=== PATIENT | female | born 1965 | race Caucasian/White ===

== ENCOUNTER 2024-09-04 08:29 | Outpatient (REF) | payer OTHER, SELFPAY ==
--- NOTE | ~2024-09-04 | XR_ITS ---
EXAMINATION: XR KNEE, RIGHT CLINICAL INFORMATION: M25.569 - Pain in unspecified knee COMPARISON: None available. TECHNIQUE: Three views of the right knee. FINDINGS: Joint space narrowing involving mostly the medial compartment both knees with associated sclerosis and the articular surface of the medial tibial plateau and medial femoral condyle. There is marginal osteophyte formation and both femoral condyles and both tibial plateaus of both knees. No suprapatellar bursa joint effusion, right knee. No acute cortical disruption or malalignment. No lytic or blastic lesions. Linear sclerosis in a transverse morphology pattern involving distal diaphysis of the femurs and proximal diaphysis of the tibia, both lower extremities. XR/XR knee RT 3V IMPRESSION: Tricompartmental osteoarthrosis involving mostly the medial compartment both knees without acute fracture or dislocation. Electronically signed by: Lloyd Alvarado MD 09/05/2024 08:18 AM EDT
--- OUTSIDE RECORDS SUMMARY | 2024-09-05 08:54 | XMS_ITS | Clinical Summary ---
Author Organization [employer] Address [address] [facility] [address] [place] [address] Care Team Providers Care Tableau Lead Name Role Phone Unavailable Primary Care Provider [...] patient's age to complete this topic Insurance [facility]
== END 2024-09-04 08:30 | disposition home or self-care (01) ==
LOC: HO.HOSX 08:29
PROVIDERS: Visit Provider Physician Assistant
DX: M17.11 Unilateral primary osteoarthritis, right knee (principal); Z87.81 Personal history of (healed) traumatic fracture
CPT/HCPCS: 20610; 73562; 99202; J1010; J2003

== ENCOUNTER 2024-09-04 10:29 | Outpatient (AMB) | payer OTHER, SELFPAY ==
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
[2024-09-04 11:09] VITALS: BMI 40.4
--- OUTSIDE RECORDS SUMMARY | 2024-09-04 11:36 | XMS_ITS | Clinical Summary ---
Author Organization [employer] Address [address] [facility] [address] [place] [address] Care Team Providers Care Paper Inserter Name Role Phone Unavailable Primary Care Provider Unavailabl e Medications No known medications Social History Tobacco Use Types Packs/Day Years Used Date Smoking Tobacco: Unknown Tobacco Cessation:Counseling Given: Not Answered Comments Unknown Sex and Gender Information Value Date Recorded Sex Assigned at Female 04/03/2022 10:26 AM EDT Legal Sex Female 10:26 AM EDT Gender Identity Female 04/03/2022 10:26 AM EDT Sexual Orientation Straight 04/03/2022 10 :26 AM EDT Plan of Treatment Health Maintenance Due Date Last Done Comments CT Colonography 1965 Colonoscopy 1965 Colorectal Cancer Screening 1965 Dental Oral Exam 1965 Dental Prophylaxis 1965 Dental X-Ray: Bitewings 1965 Dental X-Ray: Full Mouth 1965 Depression Screening 1965 FIT DNA/Cologuard 1965 FIT 1965 FOBT 1965 HIV Screening 1965 Lipid Panel 1965 SDOH Screening 1965 Sigmoidoscopy 1965 Alcohol/Substance Use Screening 1977 Hepatitis C Screening 1983 Hepatitis B Vaccines (1 of 3 - 19+ 3-dose series) 1984 Pap Smear 1986 Cervical Cancer Screening 1995 HPV/Cotest 1995 Mammogram 2005 Pneumococcal Vaccine: 50+ Years (1 of 1 - PCV) 2015 Tobacco Screening 07/11/2023 07/11/2022 COVID-19 Vaccine (2 - 2023-2 5 season) 2024 10/04/2020 Influenza Vaccine (#1) 2024 DTaP/Tdap/Td Vaccines (2 - T d or Tdap) 12/02/2029 12/03/2019 RSV Patients and Patients Aged 60 years or older (1 - 1-dose 75+ series) 2040 Zoster Vaccines Completed 01/06/2021, 10/26/2020 HIB Vaccines Aged Out No longer eligi ble based on patient's age to complete this topic HPV Vaccines Aged Out No longer eligi ble based on patient's age to complete this topic Hepatitis A Vaccines Aged Out No long er eligible based on patient's age to complete this topic IPV Vaccines Aged Out No longer eligi ble based on patient's age to complete this topic Meningococcal Vaccine Aged Out No jamal maurizio eligible based on patient's age to complete this topic RSV under 20 months Aged Out No longe r eligible based on patient's age to complete this topic Rotavirus Vaccines Aged Out No longer eligible based on patient's age to complete this topic Insurance [facility]
== END 2024-09-04 12:02 | disposition home or self-care (01) ==
LOC: HO.HOS 10:30
PROVIDERS: PCP Physician Assistant Medical; Visit Provider Physician Assistant
DX: M17.11 Unilateral primary osteoarthritis, right knee (principal)
CPT/HCPCS: 20610; 99204

== ENCOUNTER → 2024-09-04 10:35 | Outpatient (BNV) | payer OTHER, SELFPAY | PROVIDERS: Visit Provider Radiology Diagnostic Radiology | DX: M17.11 Unilateral primary osteoarthritis, right knee (principal) | CPT/HCPCS: 73562 ==

== ENCOUNTER 2024-12-12 11:40 | Outpatient (AMB) | payer OTHER, SELFPAY ==
[2024-12-12 11:48] VITALS: BMI 40.4
--- NOTE | 2024-12-12 11:48 | MHC.OFFVIS ---
Vital Signs 12/12/24 11:48 Height 5 ft 5 in Weight 243 lb BMI 40.4 Intake Visit Reasons: right knee pain (80), last inj 09/04/24 Intake Note: Jessica is a 59 year old female who presents today for a repeat injection for her right knee pain (80), last inj 09/04/24. Patient reports that she did not have any pain for about a month but wore off. Allergies naproxen (NAPROXEN) Allergy (Unknown, Verified 12/12/24 11:50) UNKNOWN HPI HPI right knee pain (80), last inj 09/04/24: Details: Ms. Keyes is a 59-year-old female who presents to the office today for chronic right knee pain due to osteoarthritis. Her last cortisone injection was 09/04/2024. She is looking for repeat cortisone injection while in the office today. [facility] Social History (Updated 09/04/24 @ 11:08 by Nelson Guerra) Alcohol intake: never Patient Tobacco Use Status: Never used Tobacco Current occupational status: disabled Review of Systems Const All systems reviewed & are unremarkable except as noted in HPI and below Physical Exam Vital Signs: BMI result Body Mass Index 40.4 Extrem Other: Right knee: Normal to inspection. No ecchymosis, erythema, or joint effusion. Tenderness to palpation medial joint line. Full knee extension and flexion with crepitus. NVI. Office Procedures AMB Joint Injection/Aspiration Joint Injection/Aspiration Primary Site: right knee Injected: 80 mg of, DepoMedrol, with 8 mL of (2% plain lidocaine) and in the joint Approach Used: anterolateral Procedure: The patient tolerated the procedure well, but had some pain with the injection and there was some relief with the local anesthesia Coding 01565 - Large joint Procedure code (CPT) selection complete Assessment & Plan Assessment & Plan (1) Osteoarthritis of right knee: Code(s): M17.11 - Unilateral primary osteoarthritis, right knee Category: Medical Plan The patient was offered a cortisone injection in the right knee with 80 mg of DepoMedrol. The patient was explained the risks, benefits, and alternatives to receiving this injection. After receiving consent for the injection, the patient had the procedure done while in the office today. The patient tolerated the procedure well with no complications. Follow-up will be PRN, or sooner if needed Coding Level of Care Code Est Pt Level 3 (01388) Diagnoses Osteoarthritis of right knee M17.11 CPT Codes Coding - 24268 Large joint: 05391 - Large joint ([id number])
--- OUTSIDE RECORDS SUMMARY | 2024-12-12 12:10 | XMS_ITS | Clinical Summary ---
Author Organization [employer] Address [address] [facility] 7[address] [place] [address] Care Team Providers Care Textile Science Technician Name Role Phone Unavailable Primary Care Provider [...] Panel 1965 SDOH Screening 1965 Sigmoidoscopy 1965 Disability Screening 1965 Alcohol/Substance Use Screening 1977 Hepatitis C Screening 1983 Hepatitis B Vaccines (1 of 3 - 19+ 3-dose series) 1984 Pap Smear 1986 Cervical Cancer Screening 1995 HPV/Cotest 1995 Mammogram 2005 Pneumococcal Vaccine: 50+ Years (1 of 1 - PCV) 2015 Tobacco Screening 07/11/2023 07/11/2022 COVID-19 Vaccine (2 - 2023-2 5 season) 2024 10/04/2020 Influenza Vaccine (#1) 2025 DTaP/Tdap/Td Vaccines (2 - T d or [...] patient's age to complete this topic Meningococcal B Vaccine Aged Out No l onger eligible based on patient's age to complete this topic Meningococcal Vaccine Aged Out No jamal maurizio eligible based on patient's age to complete this topic RSV under 20 months Aged Out No longe r eligible based on patient's age to complete this topic Rotavirus Vaccines Aged Out No longer eligible based on patient's age to complete this topic Insurance [facility]
== END 2024-12-12 12:01 | disposition home or self-care (01) ==
LOC: HO.HOS 11:40
PROVIDERS: Visit Provider Physician Assistant
DX: M17.11 Unilateral primary osteoarthritis, right knee (principal)
CPT/HCPCS: 20610

== ENCOUNTER → 2024-12-12 11:40 | Outpatient (BNVA) | payer OTHER, SELFPAY | PROVIDERS: Visit Provider Physician Assistant | DX: M17.11 Unilateral primary osteoarthritis, right knee (principal); M25.561 Pain in right knee | CPT/HCPCS: 20610; J1010; J2003 ==

== ENCOUNTER 2025-05-05 08:22 | Outpatient (AMB) | payer OTHER, SELFPAY ==
--- OUTSIDE RECORDS SUMMARY | 2025-05-05 08:25 | XMS_ITS | Clinical Summary ---
Author Organization [facility] Address [address] [address] Phone Care Team Providers Care Auto Body Straightener Name Role Phone Tristen Joyce MD Primary Care Provider + Allergies Active Allergy Reactions Criticality Noted Date Comments Niacin 01/23/2023 Medications ALPRAZolam (XANAX) 1 MG tablet TAKE 2 TABLETS BY MOUTH EVERY DAY NEEDED 01/09/2023 Active ascorbic acid, vitamin C, (VITAMIN C) 1000 MG tablet Take 1 tablet by mouth every morning. 12/02/2022 Active buPROPion (WELLBUTRIN XL) 300 MG ER 24 hr tablet Take 300 mg by mouth every morning. 01/06/2023 Active gabapentin (NEURONTIN) 600 MG tablet Take 600 mg by mouth 3 (three) times a day. 11/09/2022 Active oxyCODONE-aceta minophen (PERCOCET) 10-325 mg per tablet Take 1 tablet by mouth every 4 (four) hours as needed. 01/08/2023 Active multivitamin per tablet Take 1 tablet by mouth every morning. 11/09/2022 Active lisinopril (PRINIVIL,ZESTR IL) 20 MG tablet Take 1 tablet by mouth every morning. 11/08/2022 Active Active Problems Problem Noted Date Diagnosed Date Class 1 obesity with body ma ss index (BMI) of 33.0 to 33.9 in adult 01/23/2023 Neck pain 01/23/2023 Chronic right shoulder pain 01/23/2023 Social History Tobacco Use Types Packs/Day Years Used Date Smoking Tobacco: Never Assessed Education Answer Date Recorded Are you interested in more education? Not on rika e 11/14/2022 Are you concerned about learning? Not on file 11/14/2022 No 11/14/2022 No 11/14/2022 Digital Access Answer Date Recorded No 11/14/2022 No 11/14/2022 Reliable internet access at home? Not on file 11/14/2022 Device with a working camera? Not on file Comments Unknown Sex and Gender Information Value Date Recorded Sex Assigned at Not on file Legal Sex Female 2:48 PM EDT Gender Identity Not on file Sexual Orientation Not on file Last Filed Vital Signs Vital Sign Reading Time Taken Comments Blood Pressure 120/63 01/23/2023 8:34 AM EDT Pulse 62 01/23/2023 8:34 AM EDT Temperature - - Respiratory Rate - - Oxygen Saturation - - Inhaled Oxygen Concentration - - Weight 87.1 kg (192 lb) 01/23/2023 8:34 AM EDT Height 161.3 cm (5' 3.5 ) 01/23/2023 8:34 AM EDT Body Mass Index 33.48 01/23/2023 8:34 AM EDT Plan of Treatment Health Maintenance Due Date Last Done Comments Adult Td,Tdap Booster 1965 CREATININE LEVEL 1965 LIPID PANEL 1965 POTASSIUM LEVEL 1965 DEPRESSION SCREENING 1977 SMOKING Hx and SMOKELESS TOB ACCO SCREENING 1978 HEPATITIS C SCREENING 1983 HIV ONE-TIME SCREENING (18-6 5 YEARS) 1983 PAP SMEAR 1986 SCREENING FOR DIABETES 2000 MAMMOGRAM 2005 COLOGUARD 2010 COLONOSCOPY 2010 COLORECTAL CANCER SCREENING 2010 FIT TEST 2010 FOBT 2010 SIGMOIDOSCOPY 2010 VIRTUAL COLONOSCOPY 2010 PNEUMOCOCCAL VACCINES (50+ y ears) (1 of 1 - PCV) 2015 ZOSTER VACCINES (1 of 2) 2015 INFLUENZA VACCINE (#1) 2025 COVID-19 VACCINE ( - 2024-2 6 season) 2025 RSV VACCINE (1 - 1-dose 75+ series) 2040 HEPATITIS A VACCINES Aged Out No long er eligible based on patient's age to complete this topic HIB VACCINES Aged Out No longer eligi ble based on patient's age to complete this topic MENINGOCOCCAL VACCINES (ACWY) Aged Out No longer eligible based on patient's age to complete this topic MENINGOCOCCAL VACCINES (B) Aged Out N o longer eligible based on patient's age to complete this topic Medical Devices Not on file [place] [address] [place] [address] [place], [place] [id number] [facility] MEDICARE REPLACEMENT [address] [place], [place] [id number] [facility] MEDICARE [facility]PLACEMENT [facility] MEDICARE REPLACEMENT [facility] MEDICARE REPLACEMENT [place] [id number] Care Teams Auto Body Straightener Relationship Specialty Start Date End Date Tristen Joyce MD [address] [facility] [address] [place] [address] PCP - General Internal Medicine 11/14/22 Additional Source Comments The information contained in this document represents components of the legal health record. It is not the complete legal health record.[facility]
--- OUTSIDE RECORDS SUMMARY | 2025-05-05 08:25 | XMS_ITS | Clinical Summary ---
Author Organization [employer] Address [address] [facility] [address] [place] [address] Care Team Providers Care User Experience Developer Name Role Phone Unavailable Primary Care Provider [...] Years (1 of 1 - PCV) 2015 RSV Patients and Patients Aged 60 years or older (1 - Risk 50-74 years 1-dose series) 2015 Tobacco Screening 07/11/2023 07/11/2022 COVID-19 Vaccine (2 - 2024-2 6 season) 2025 10/04/2020 Influenza Vaccine (#1) 2025 DTaP/Tdap/Td Vaccines (2 - T d or Tdap) 12/02/2029 12/03/2019 Zoster Vaccines Completed 01/06/2021, 10/26/2020 HIB Vaccines [...] patient's age to complete this topic Insurance [facility]
--- NOTE | 2025-05-05 08:44 | A.OFFVIS_ITS ---
Vital Signs 05/05/25 08:45 Height 5 ft 5 in Weight 243 lb BMI 40.4 Intake Visit Reasons: INJ Right knee injection, last inj 12/12/24 Intake Note: Jessica is a 59 year old female who presents today for a repeat injection for her right knee, last injection 12/12/24. Patient reports her last injection gave her relief and would like to relief. Allergies naproxen (NAPROXEN) Allergy (Unknown, Verified 05/05/25 08:44) UNKNOWN HPI HPI INJ Right knee injection, last inj 12/12/24: Details: Ms. Keyes is a 59-year-old female who presents to the office today for chronic right knee pain due to osteoarthritis. She received a cortisone injection last on 12/12/2024 which gave her good relief. She is looking to repeat injection while in the office today. [facility] Social History Alcohol intake: never Patient Tobacco Use Status: Never used Tobacco Current occupational status: disabled Review of Systems Const All systems reviewed & are unremarkable except as noted in HPI and below Physical Exam Vital Signs: BMI result Body Mass Index 40.4 Const General: cooperative, healthy appearing and no acute distress Resp Effort & Inspection: normal respiratory effort and able to speak in complete sentences Extrem Other: Right knee: Normal to inspection. No ecchymosis, erythema, or joint effusion. Tenderness to palpation medial joint line. Full knee extension and flexion with crepitus. NVI. Psych Appearance: grossly normal Mental Status: mental status grossly normal Attitude: cooperative Office Procedures AMB Joint Injection/Aspiration Joint Injection/Aspiration Primary Site: Right Knee Prep: site was prepped using aseptic technique, ethochloride spray was applied and injection warnings given Injected: 40 mg of, Decadron, with 3 mL of, 1% plain Lidocaine, 0.25% Bupivacaine and in the joint Approach Used: anterolateral Procedure: The patient tolerated the procedure well, but had some pain with the injection and there was some relief with the local anesthesia Coding 30242 - Large joint Procedure code (CPT) selection complete Assessment & Plan Assessment & Plan (1) Osteoarthritis of right knee: Code(s): M17.11 - Unilateral primary osteoarthritis, right knee Category: Medical Plan The patient was offered a cortisone injection in right knee. The patient was ex plained the risks, benefits, and alternatives to receiving this injection. After receiving consent for the injection, the patient had the procedure done while in the office today. The patient tolerated the procedure well with no complications. The risks, benefits, and alternatives to a corticosteroid injection were discussed with the patient, including the potential benefits of decreased inflammation and pain, improved function, and diagnostic value. Risks were reviewed, including post-injection flare, skin or fat atrophy, transient facial flushing, temporary elevation in blood glucose, bruising, and rare but serious complications such as infection, tendon weakening or rupture, and cartilage damage with repeated injections. Procedure-related discomfort and possible vasovagal symptoms were also explained. Alternatives were reviewed, including NSAIDs, physical therapy, activity modification, bracing, ice/heat, weight management, hyaluronic acid injections when appropriate, PRP or other orthobiologics, oral steroids, surgery depending on pathology, and observation. The patient verbalized understanding and elected to proceed. After receiving consent for the injection, the patient had the procedure done while in the office today. The patient tolerated the procedure well with no complications. Due to the patient?s history of diabetes, they were instructed to monitor their blood glucose level. The patient was informed that they could see a rise in their numbers and if the numbers became too high, they were instructed to call their PCP. Follow-up will be PRN, or sooner if needed Coding Level of Care Code Est Pt Level 3 (08263) Diagnoses Osteoarthritis of right knee M17.11 CPT Codes Coding - 87971 Large joint: 20551 - Large joint ([id number])
[2025-05-05 08:45] VITALS: BMI 40.4
== END 2025-05-05 08:49 | disposition home or self-care (01) ==
LOC: HO.HOS 08:23
PROVIDERS: Visit Provider Physician Assistant
DX: M17.11 Unilateral primary osteoarthritis, right knee (principal); M25.561 Pain in right knee
CPT/HCPCS: 20610; 99213

== ENCOUNTER → 2025-05-05 08:22 | Outpatient (BNVA) | payer OTHER, SELFPAY | PROVIDERS: Visit Provider Physician Assistant | DX: M17.11 Unilateral primary osteoarthritis, right knee (principal) | CPT/HCPCS: 20610; 99212; J0665; J1100; J2003 ==